=== PATIENT | female | born 1990 | race Caucasian/White ===

== ENCOUNTER 2018-07-16 12:43 | Outpatient (CLI) | payer OTHER ==
[2018-07-16] MEDS: TERBUTALINE 1 MG/ML INJ SC (14:38)
== END 2018-07-16 15:40 | disposition home or self-care (01) ==
LOC: OBT 12:43 → L-D 12:45 → OBT 15:40
DX: O47.03 False labor before 37 completed weeks of gestation, third trimester (principal); Z3A.36 36 weeks gestation of pregnancy
CPT/HCPCS: 76818; 96372